=== PATIENT | female | born 1965 | race Caucasian/White ===

== ENCOUNTER 2018-03-03 10:45 | Day surgery (SDC) | payer OTHER, SELFPAY ==
--- NOTE | 2018-03-03 07:48 | W.PM.DSUDISC ---
Discharge Plan Disposition Patient Disposition: HOME Condition: Good Discharge Details Reason For Visit: ADENOMATOUS POLYP Attending Provider: Lou Alfaro Primary Care Provider: Jayde Dc V Home Meds and New Rx's Prescriptions: Continue egzoewhqdpleg-GA-mkmaqjzoabkuz [Mucinex Fast-Max Congest-Head] 1 EACH capsule 1 ea PO PRN PRNRF: 0 levothyroxine [Synthroid] 125 MCG tablet 125 mcg PO DAILY RF: 0 Discharge Instructions Instructions: Flexible Sigmoidoscopy (DC) Additional Instructions: Findings: 2 rectal polyps Follow up: depends on pathology Diet: high fiber Please call if you develop: fevers greater then 101.5 abdominal pain that is not transient nausea or vomiting 1. Because there will be medication in your system for the next 24 hours, you may feel a little sleepy. Your coordination will be affected. Therefore: a. Do not drive or operate dangerous equipment for 24 hours. b. Do not drink alcohol beverages for 24 hours (not even beer). c. Plan to go home and rest for the day. 2. Generally there are no restrictions on your activity after a day or so has gone by, but you may feel a bit fatigued for a few days. 3 After you arrive home you may have a light meal and return to a normal diet as you can tolerate it without feeling sick to your stomach. 4. After surgery, you may feel pain or discomfort. This should be only transient, but if it persists please contact your doctor. 5. If there are any questions regarding the findings of your procedure, please feel free to contact your doctor. 6. If you are unable to contact your doctor with a problem, contact the hospital at [phone]. 7. Continue all your regular medications unless directed otherwise. I understand the above instructions and have no questions. Signature of Patient or Responsible Adult Escort Date/Time Name of Responsible Adult Escort Signature of Nurse Date/Time Activity:: Activity as Tolerated Discharge Orders Discharge Orders: Discharge Order (Routine); Ordered 03/03/18 Ordered By: Lou Alfaro
--- NOTE | 2018-03-03 07:57 | PDOC.DSDIS_ITS ---
Discharge Plan Disposition Patient Disposition: HOME Condition: Good Discharge Details Reason For Visit: ADENOMATOUS POLYP Attending Provider: Lou Alfaro Primary Care Provider: Jayde Dc V Home Meds and New Rx's Prescriptions: Continue dlzqjgwohqzrx-ZQ-zawxdvvsifumg [Mucinex Fast-Max Congest-Head] 1 EACH capsule 1 ea PO PRN PRNRF: 0 levothyroxine [Synthroid] 125 MCG tablet 125 mcg PO DAILY RF: 0 Discharge Instructions Instructions: Flexible Sigmoidoscopy (DC) Additional Instructions: Findings: 2 rectal polyps Follow up: depends on pathology Diet: high fiber Please call if you develop: fevers greater then 101.5 abdominal pain that is not transient nausea or vomiting 1. Because there will be medication in your system for the next 24 hours, you may feel a little sleepy. Your coordination will be affected. Therefore: a. Do not drive or operate dangerous equipment for 24 hours. b. Do not drink alcohol beverages for 24 hours (not even beer). c. Plan to go home and rest for the day. 2. Generally there are no restrictions on your activity after a day or so has gone by, but you may feel a bit fatigued for a few days. 3 After you arrive home you may have a light meal and return to a normal diet as you can tolerate it without feeling sick to your stomach. 4. After surgery, you may feel pain or discomfort. This should be only transient , but if it persists please contact your doctor. 5. If there are any questions regarding the findings of your procedure, please feel free to contact your doctor. 6. If you are unable to contact your doctor with a problem, contact the hospital at [phone]. 7. Continue all your regular medications unless directed otherwise. I understand the above instructions and have no questions. Signature of Patient or Responsible Adult Escort Date/Time Name of Responsible Adult Escort Signature of Nurse Date/Time Activity:: Activity as Tolerated Discharge Orders Discharge Orders: Discharge Order (Routine); Ordered 03/03/18 Ordered By: Lou Alfaro
[2018-03-03 11:06] VITALS: BP 147/102; PULSE 115; RESP 18; TEMP 37; O2SAT 98
[2018-03-03] MEDS: Lactated Ringers 1,000 ML 80 ML IV (11:33)
--- NOTE | 2018-03-03 12:35 | BOWEL_PTH ---
PATIENT: Marlen Renee LOC: [facility] U#:[id number] AGE/SX: 52/F ROOM: RE03/03/[address]: Lou Alfaro MD : 1965 BED: DIS: 03/03/2018 SPEC #: [id number] RECD: 03/03/18 13:16 STATUS: PRATIBHA RE #: [id number] DEMARCO: 03/03/18 12:[address]: Lou Alfaro DEPT: Surgical Specimen RECD BY: Eleanor Torres ENTERED: 03/03/18 13:17 SP TYPE: Bowel OTHR DR: Jayde Dc V Tissues: 1 - BIOPSY BOWEL Procedures: GROSS AND MICRO LEVEL 4 Comments: [id number]
--- NOTE | 2018-03-03 12:52 | W.COLOREPORT ---
Colonoscopy Report Date of procedure: 03/03/18 Pre-op diagnosis general: Cancerous polyp Post-op diagnosis procedure note: other (rectal polyp) Procedure: Flexible sigmoidoscopy Surgeon: Lou Alfaro Anesthesia proc note operative: MAC (Isidoro Lima CRNA) Estimated blood loss (mL): 5 Pathology: other (rectal polyp) Complications: None Disposition: same day Indications: Cancerous polyp 3 months ago Prep: Other (enema) Findings: 2 polyps in the rectum Procedure Description: After informed consent was obtained the patient was taken to the Procedure room and placed in a left lateral position. A time out was done. The patient's name, date of , allergies to medications and metal in her body were reviewed. Monitors were applied and the patient was sedated. Once sedated a rectal exam was done. External exam was normal. Internal exam revealed no masses and normal sphincter tone. The scope was introduced and retroflexed and no internal hemorrhoids were noted. The scope was straightened and advanced to the splenic flexure. The prep was adequate. The scope was retracted over 5 minutes. In the rectum at 8 cm 2 small polyps were identified and removed with a hot snare. The scope was removed and the patient was woken up and taken back to [facility] in stable condition.
[2018-03-03 13:20] VITALS: BP 123/83; PULSE 76; RESP 16; TEMP 36.4; O2SAT 97
== END 2018-03-03 13:50 | disposition home or self-care (01) ==
LOC: SUR 10:46
PROVIDERS: PCP Family Medicine; Visit Provider Surgery
PROC: 0DJD8ZZ Inspection of Lower Intestinal Tract, Via Natural or Artificial Opening Endoscopic (ICD-10-PCS; CPT 45330; principal; 2018-03-03 12:45)
DX: K62.1 Rectal polyp (principal); Z86.010 Personal history of colon polyps
CPT/HCPCS: 45333; 88305

== ENCOUNTER 2018-06-02 01:21 | Outpatient (CLI) | payer OTHER, SELFPAY ==
--- NOTE | 2018-06-02 09:33 | DI.MAMMO_ITS ---
SYMPTOM/DIAGNOSIS: H/O BREAST CA Z85.3, SCREENING, Z12.31 MAMMOGRAMS: Mammograms were interpreted according to the usual protocol including computer analysis with CAD system, tomosynthesis and C view imaging. Comparison with prior examinations. Breast density A. Post surgical changes of a lumpectomy with a scar in the upper outer quadrant of the left breast. No suspicious masses or microcalcifications are seen. There has been no significant change compared to the prior examinations.. IMPRESSION: No evidence for malignancy. Routine yearly mammography is recommended. Category 2-A. MQSA ASSESSMENT OF FINDINGS: Negative with benign findings. Category 2. Patient will receive a letter notifying them of these results. BI-RAD category A. The breasts are almost entirely fatty.
== END 2018-06-02 01:41 ==
PROVIDERS: PCP Family Medicine; Visit Provider Family Medicine
DX: Z12.31 Encounter for screening mammogram for malignant neoplasm of breast (principal); Z85.3 Personal history of malignant neoplasm of breast; Z98.890 Other specified postprocedural states
CPT/HCPCS: 77063; 77067

== ENCOUNTER 2019-05-01 09:31 | Day surgery (SDC) | payer OTHER, SELFPAY ==
--- NOTE | 2019-05-01 07:09 | W.COLOREPORT ---
Date of service: 05/01/19 Time of Service: 10:37 Colonoscopy Report Date of procedure: 05/01/19 Pre-op diagnosis general: hx of colon polyps Post-op diagnosis procedure note: same Procedure: Colonoscopy with polypectomy Surgeon: Lou Alfaro Anesthesia proc note operative: other (General/ ASA 2/Elisa Gee CRNA ) Estimated blood loss (mL): 3 Pathology: other (Ascending colon polyp and sigmoid polyp) Complications: None Disposition: same day Indications: Mrs. Renee is a pleasant 53 year old female seen in the office for a repeat colonoscopy. Her last colonoscopy was 1 year ago. 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 One year ago she was found to have a tubular adenoma and hyperplastic polyp. Risks, benefits and complications have been reviewed. Complications include but are not limited to bleeding, pain, perforation, missed small lesion/polyp, sore throat, aspiration and adverse reaction to the medications. Questions were entertained and answered to their satisfaction and they wished to proceed. No guarantees were given or implied. Prep: Miralax/Dulcolax Procedure Start Time: :37 Procedure End Time: :02 Retraction Time: 18 minutes Findings: 2 small sessile polyps Diverticulosis Procedure Description: After informed consent was obtained the patient was taken to the procedure room and placed in a left decubitous position. Monitors were applied and a time out was done. The patients name, date of , procedure, allergies to medications and metal in their body was reviewed. The patient was then sedated. Once sedated and comfortable a rectal exam was done. External exam was normal. Internal exam revealed a normal sphincter tone and no palpable masses. The scope was then introduced and retro-flexed. No internal hemorrhoids, polyps or masses were identified on retro-flexion. The scope was then advanced to the cecum without difficulty. The TI and appendiceal orifice were identified. The prep was good. The scope was then slowly retracted over 18 minutes back into the rectum. Polyps were removed with cold forceps in the ascending colon and sigmoid colon. The scope was removed and the patient was woken up and taken back to Same day surgery in stable condition. The patient tolerated the procedure well and there were no immediate complications. Follow up: The patient should follow up in 3-5 years unless they develop changes in bowel habits or other new gastrointestinal complaints.
--- NOTE | 2019-05-01 07:19 | W.PM.DSUDISC ---
Discharge Plan Disposition Patient Disposition: HOME Condition: Good Discharge Details Reason For Visit: Colon Cancer Screening Attending Provider: Lou Alfaro Primary Care Provider: Jayde Dc V Home Meds and New Rx's Prescriptions: Continued Centrum Silver Women 8 mg iron-400 mcg-300 mcg Tablet 1 tab PO RF: 0 levothyroxine [Synthroid] 125 MCG tablet 125 mcg PO DAILY RF: 0 Discharge Instructions Instructions: Colonoscopy (DC) Additional Instructions: Findings: 2 polyps Diverticulosis Follow up: 3-5 years Please call if you develop: fevers >101.5 Nausea or Vomiting Abdominal pain that is not transient DAY SURGERY UNIT POST ENDOSCOPY INSTRUCTIONS 1. Because there will be medication in your system for the next 24 hours, you may feel a little sleepy. Your coordination will be affected. Therefore: a. Do not drive or operate dangerous equipment for 24 hours. b. Do not drink alcohol beverages for 24 hours (not even beer). c. Plan to go home and rest for the day. 2. Generally there are no restrictions on your activity after a day or so has gone by, but you may feel a bit fatigued for a few days. 3 After you arrive home you may have a light meal and return to a normal diet as you can tolerate it without feeling sick to your stomach. 4. After surgery, you may feel pain or discomfort. This should be only transient, but if it persists please contact your doctor. 5. If there are any questions regarding the findings of your procedure, please feel free to contact your doctor. 6. If you are unable to contact your doctor with a problem, contact the hospital at [phone]. 7. Continue all your regular medications unless directed otherwise. I understand the above instructions and have no questions. Signature of Patient or Responsible Adult Escort Date/Time Name of Responsible Adult Escort Signature of Nurse Date/Time Activity:: Activity as Tolerated Diet:: High Fiber diet Discharge Orders Discharge Orders: Discharge Order (Routine); Ordered 05/01/19 Ordered By: Lou Alfaro DS: Diagnosis Discharge Diagnosis (1) Colonoscopy - MAC: Status: None (2) Diverticulosis: Status: Acute (3) Colorectal polyps: Status: Acute
[2019-05-01] MEDS: Lactated Ringers 1,000 ML 80 ML IV (10:00)
[2019-05-01 10:02] VITALS: BP 134/98; PULSE 95; RESP 16; TEMP 36.6; O2SAT 99
--- NOTE | 2019-05-01 10:50 | BOWEL_PTH ---
PATIENT: Marlen Renee LOC: [facility] U#:[id number] AGE/SX: 53/F ROOM: RE05/01/[address]: Lou Alfaro MD : 1965 BED: DIS: 05/01/2019 SPEC #: [id number] RECD: 05/01/19 12:37 STATUS: PRATIBHA REQ #: [id number] DEMARCO: 05/01/19 10:[address]: Lou Alfaro DEPT: Surgical Specimen RECD BY: Eleanor Torres ENTERED: 05/01/19 12:37 SP TYPE: Bowel OTHR DR: Jayde Dc V Tissues: 1 - BIOPSY BOWEL 2 - BIOPSY BOWEL Procedures: GROSS AND MICRO LEVEL 4 Comments: [id number]
[2019-05-01 11:45] VITALS: BP 109/69; PULSE 69; RESP 18; TEMP 36.1; O2SAT 100
== END 2019-05-01 12:05 | disposition home or self-care (01) ==
LOC: SUR 09:31
PROVIDERS: PCP Family Medicine; Visit Provider Surgery
PROC: 0DJD8ZZ Inspection of Lower Intestinal Tract, Via Natural or Artificial Opening Endoscopic (ICD-10-PCS; CPT 45378; principal; 2019-05-01 10:00)
DX: Z12.11 Encounter for screening for malignant neoplasm of colon; Z86.010 Personal history of colon polyps; Z87.19 Personal history of other diseases of the digestive system; D12.2 Benign neoplasm of ascending colon; Z85.3 Personal history of malignant neoplasm of breast
CPT/HCPCS: 45380; 88305

== ENCOUNTER 2019-06-05 01:04 | Outpatient (CLI) | payer OTHER, SELFPAY ==
--- NOTE | 2019-06-05 09:40 | DI.MAMMO_ITS ---
EXAM: MG MAMMO SCREENING 60 MIN DUR CLINICAL HISTORY: SCREENING, PERSONAL H/O BREAST CA, [facility], Z00.00. TECHNIQUE: Full field digital CC and MLO mammographic images were obtained with 3D tomosynthesis and utilizing computer aided detection (CAD). COMPARISON: 2009 through 2017 FINDINGS: Breast density: A Breast Density - Category A - Almost entirely fatty Right breast: Masses/Architectural Distortion: None seen. Microcalcifications: No suspicious pleomorphic-type calcifications are seen. Skin Thickening/Nipple Retraction: None. Axilla: Unremarkable. Left breast: The patient is status post lumpectomy in the upper outer quadrant of the left breast. T here is a stable area of scarring in this location. No new masses or suspicious calcifications are s een. IMPRESSION: 1. No significant interval change with no specific features of malignancy noted. BI-RADS Cat 2 - Andrei gn Findings 2. Unless there is more urgent need, screening mammography is recommended, as per [employer] guidelines. BI-RADS Cat 2 - Benign Findings Breast Density - Category A - Almost entirely fatty A negative radiographic report should not delay biopsy if a dominant or clinically suspicious mass is present. Up to ten percent of cancers are not identified on mammography. A negative report may reinforce clinical impression. Adenosis and dense breasts may obscure an underlying neoplasm. False positive reports average 6 to 10%. Patient will receive a letter notifying them of these results.
== END 2019-06-05 01:24 ==
PROVIDERS: PCP Family Medicine; Visit Provider Family Medicine
DX: Z12.31 Encounter for screening mammogram for malignant neoplasm of breast (principal); Z85.3 Personal history of malignant neoplasm of breast; Z00.00 Encounter for general adult medical examination without abnormal findings; Z98.890 Other specified postprocedural states
CPT/HCPCS: 77063; 77067

== ENCOUNTER 2020-06-06 00:40 | Outpatient (CLI) | payer OTHER, SELFPAY ==
--- NOTE | 2020-06-06 10:00 | DI.MAMMO_ITS ---
EXAM: MG MAMMO SCREENING 60 MIN DUR CLINICAL HISTORY: SCREENING, PERSONAL H/O BREAST CA,[facility],Z00.00. TECHNIQUE: Bilateral full field digital CC and MLO mammographic images were obtained with 3D tomosyn thesis and utilizing computer aided detection (CAD). COMPARISON: Prior mammograms dating back to 2010, the most recent being February 2015. This patien t underwent left breast lumpectomy for malignancy apparently 2006. FINDINGS: Lumpectomy site scarring in the upper outer quadrant of the left breast remains unchanged. Calcifica tions in this region remain unchanged as is the mount of architectural distortion. There are no new significant radiograph findings in either breast. There are no new spiculated masses nor new malignant appearing microcalcification groups. IMPRESSION: No radiographic evidence of malignancy. Continued stable appearance of the left breast lumpectomy sit e. BI-RADS Category 2 - Benign Findings Breast Density - Category A - Almost entirely fatty Breast density Category C or D implies that the patient has dense breast tissue. Dense breast tissue can make it harder to find cancer on a mammogram. Dense breast tissue is also associated with an incr eased risk of breast cancer. This information about the result of the mammogram report was provided to the patient to raise their awareness. Use this report when you speak with the patient about their risks for breast cancer, which includes their family history. At that time, you may recommend additional screening tests (Ultrasoun d or MRI) as these tests may add significant information. A negative radiographic report should not delay biopsy if a dominant or clinically suspicious mass is present. Up to ten percent of cancers are not identified on mammography. A negative report may reinforce clinical impression. Adenosis and dense breasts may obscure an underlying neoplasm. False positive reports average 6 to 10%. Patient will receive a letter notifying them of these results.
== END 2020-06-06 01:00 ==
PROVIDERS: PCP Family Medicine; Visit Provider Family Medicine
DX: Z00.00 Encounter for general adult medical examination without abnormal findings (principal); Z12.31 Encounter for screening mammogram for malignant neoplasm of breast; Z85.3 Personal history of malignant neoplasm of breast
CPT/HCPCS: 77063; 77067

== ENCOUNTER 2020-10-15 08:22 | Outpatient (CLI) | payer OTHER, SELFPAY ==
--- NOTE | 2020-10-15 08:00 | DI.RAD_ITS ---
EXAM: XR SHOULDER RT COMPLETE 2+V CLINICAL HISTORY: right shoulder pain. TECHNIQUE: 2D digital imaging was performed. COMPARISON: No exams were available for comparison FINDINGS: BONES: No acute fracture is present. No bony destructive lesion is seen. JOINTS: No dislocation present. SOFT TISSUE: Normal. IMPRESSION: Unremarkable radiographs of the right shoulder. DATA REPOSITORY: RADIATION DOSE DELIVERED:
== END 2020-10-15 08:23 | disposition home or self-care (01) ==
LOC: DIORS 08:22
PROVIDERS: PCP Family Medicine; Referring Provider Family Medicine; Visit Provider Student in an Organized Health Care Education/Training Program
DX: M25.511 Pain in right shoulder (principal)
CPT/HCPCS: 73030

== ENCOUNTER 2020-12-18 10:26 | Outpatient (CLI) | payer OTHER, SELFPAY ==
--- NOTE | 2020-12-18 10:15 | DI.RAD_ITS ---
Exam(s) XR SHOULDER RT COMPLETE 2+V EXAM: XR SHOULDER RT COMPLETE 2+V CLINICAL HISTORY: F/u. TECHNIQUE: 2D digital imaging was performed. COMPARISON: CR XR SHOULDER RT COMPLETE 2+V from 10/15/2020 FINDINGS: There is no evidence of fracture or dislocation no abnormal soft tissue calcifications. Coracoid pro cess is intact. There is no narrowing joint spaces. Subacromial height is not diminished. Visualized scapula and partially included ipsilateral clavicle appear unremarkable. IMPRESSION: No significant radiograph findings in the right shoulder and no significant change compared to 2020 DATA REPOSITORY: RADIATION DOSE DELIVERED:
== END 2020-12-18 10:27 | disposition home or self-care (01) ==
LOC: DIORS 10:27
PROVIDERS: PCP Family Medicine; Referring Provider Family Medicine; Visit Provider Student in an Organized Health Care Education/Training Program
DX: M75.81 Other shoulder lesions, right shoulder (principal)
CPT/HCPCS: 73030

== ENCOUNTER 2020-12-30 03:29 | Outpatient (CLI) | payer OTHER, SELFPAY ==
[2020-12-30 07:50] LABS: HCT 40.6 % (36.0-46.0); HGB 13.1 g/dL (11.2-15.7)
[2020-12-30 08:21] LABS: Hemoglobin A1C 5.9 % (<5.7)
[2020-12-30 09:15] LABS: ALT 24 U/L (14-59); AST 16 U/L (15-37); Albumin 3.6 g/dL (3.4-5.0); Alkaline Phosphatase 96 U/L (46-116); Anion Gap 10.8 mmol/L (3-11); BUN 11 mg/dL (7-18); Bilirubin, Total 0.4 mg/dL (0.2-1.0); CO2 25.2 mmol/L (21.0-32.0); Calcium 9.6 mg/dL (8.5-10.1); Chloride 108 mmol/L (98-107); Estimated GFR 57.78 (mL/min/1.73m2); FREE T4 1.65 ng/dL (0.76-1.46); Glucose 99 mg/dL (74-106); Potassium 4.4 mmol/L (3.5-5.1); Sodium 144 mmol/L (136-145); Total Protein 6.7 g/dL (6.4-8.2)
[2020-12-30 12:33] LABS: Calculated LDL 133 mg/dL (<100); Cholesterol 226 mg/dL (<200); HDL Cholesterol 76 mg/dL (40-60); Triglyceride 86 mg/dL (<150)
== END 2020-12-30 03:30 | disposition home or self-care (01) ==
LOC: LBO 03:29
PROVIDERS: PCP Family Medicine; Visit Provider Family Medicine
DX: R03.0 Elevated blood-pressure reading, without diagnosis of hypertension (principal); E03.9 Hypothyroidism, unspecified; Z00.00 Encounter for general adult medical examination without abnormal findings; Z13.1 Encounter for screening for diabetes mellitus; Z13.220 Encounter for screening for lipoid disorders
CPT/HCPCS: 36415; 80053; 80061; 83036; 84439; 85014; 85018

== ENCOUNTER 2021-02-13 09:57 | Outpatient (REF) | payer OTHER, SELFPAY ==
--- NOTE | 2021-02-13 09:15 | PAPFT_PTH ---
PATIENT: Marlen Renee LOC: [facility] U#:[id number] AGE/SX: 55/F ROOM: RE02/13/[address]: JOSEPHINE Win : 1965 BED: DIS: 02/13/2021 SPEC #: [id number] RECD: 02/13/21 13:03 STATUS: PRATIBHA REDarcy #: [id number] DEMARCO: 02/13/21 09:[address]: Mitzi Mederos DEPT: [facility] Cytology RECD BY: Eleanor Torres ENTERED: 02/13/21 13:04 SP TYPE: PAPFT OTHR DR: Jayde Dc V Tissues: 1 - CX/ENDOCX FOR PAP SMEARS Procedures: PAP THIN PREP/[facility] Screening HPV DNA PROBE Comments: [id number]
== END 2021-02-13 09:58 | disposition home or self-care (01) ==
LOC: LBN 09:57
PROVIDERS: PCP Family Medicine; Visit Provider Nurse Practitioner Family
DX: Z12.4 Encounter for screening for malignant neoplasm of cervix (principal); Z11.51 Encounter for screening for human papillomavirus (HPV)
CPT/HCPCS: 88142; 87624

== ENCOUNTER 2021-03-06 02:02 | Outpatient (CLI) | payer OTHER, SELFPAY ==
--- NOTE | 2021-03-06 06:45 | DI.CT_ITS ---
Exam(s) CT ABDOMEN PELVIS W EXAM: CT ABDOMEN PELVIS W CLINICAL HISTORY: LLQ pain c/o diverticulitis, R10.32 TECHNIQUE: Imaging Protocol: Axial computed tomography images with coronal and sagittal reformatted images were created and reviewed CONTRAST MATERIAL: Intravenous: Omnipaque 350 Contrast volume:100 mL Oral: Yes COMPARISON: No exams were available for comparison FINDINGS: ABDOMEN: Lung Bases: Normal where visualized. Small hiatal hernia. Liver: Normal density. No measurable mass. Portal, Superior Mesenteric, and Splenic Veins: Unremarkable. Gallbladder and Biliary Tract: No radiodense calculus or dilation. Pancreas: Normal density, no abnormal calcifications or inflammatory process. Spleen: Normal. Adrenals: No masses seen. Kidneys: Normal size, contour and axis. No radiodense stones or obstructive uropathy. No masses seen. Abdominal Aorta: Abdominal portion non-dilated. Mild atherosclerosis. Bowel: No evidence of obstruction. There is diverticulosis seen in the descending and sigmoid colon. There is bowel wall thickening and pericolonic inflammatory changes seen at the junction of the melissa cending colon and the sigmoid colon consistent with acute diverticulitis. No abscess or free air. A ppendix is unremarkable. Peritoneal Cavity: No ascites, collection or mesenteric inflammatory response. No free air. Lymph Nodes: Within normal limits. Bones: Within normal limits for the patient's age. Soft Tissues: Unremarkable. PELVIS: Bladder: Symmetric distention, no gross wall thickening. Reproductive Organs: Unremarkable as visualized. Lymph Nodes: Within normal limits. Bones: Within normal limits for the patient's age. IMPRESSION: Uncomplicated acute diverticulitis at the junction of the descending and sigmoid colon. No abscess o r free air. RADIATION DOSE DELIVERED: 1,595.21mGy.cm Total DLP DATA REPOSITORY: All CT scans at this facility are submitted to the National Radiology Data Registry (NRDR) Dose Index Registry (DIR) with the [employer] (A[employer]). RADIATION OPTIMIZATION: All CT scans at this facility use at least one of these dose optimization te chniques: automated exposure control; mA and/or kV adjustment per patient size (includes targeted exa ms where dose is matched to clinical indication); or iterative reconstruction.
[2021-03-06] MEDS: Omnipaque 350 MG/ML 50 ML BTL IJ (08:02)
[2021-03-06] MEDS: Omnipaque 350 MG/ML 100 ML BTL IV (09:05)
[2021-03-06] MEDS: Normal Saline Flush 10 ML SYR IVP (09:06)
== END 2021-03-06 02:22 ==
PROVIDERS: PCP Family Medicine; Visit Provider Physician Assistant
DX: R10.32 Left lower quadrant pain (principal); K57.30 Diverticulosis of large intestine without perforation or abscess without bleeding
CPT/HCPCS: 74177; J3490; Q9967

== ENCOUNTER 2021-06-26 02:59 | Outpatient (CLI) | payer OTHER, SELFPAY ==
--- NOTE | 2021-06-26 06:45 | DI.MAMMO_ITS ---
Exam(s) MG MAMMO SCREENING 60 MIN DUR EXAM: MG MAMMO SCREENING 60 MIN DUR CLINICAL HISTORY: breast cancer screening,z12.39 TECHNIQUE: Bilateral full field digital CC and MLO mammographic images were obtained with 3D tomosyn thesis and utilizing computer aided detection (CAD). COMPARISON: Available for comparison. FINDINGS: Masses/Architectural Distortion: The patient is status post left breast lumpectomy. No suspicious ma ss or areas of architectural distortion are seen. Microcalcifications: No suspicious pleomorphic-type are seen. Stable calcifications at the lumpectomy site are noted. Skin Thickening/Nipple Retraction: None. IMPRESSION: 1. No significant interval change with no specific features of malignancy noted. 2. Unless there is more urgent need, screening mammography is recommended, as per [employer] guidelines. BI-RADS Category 2 - Benign Findings Breast Density - Category A - Almost entirely fatty Breast density category C or D implies that the patient has dense breast tissue. Dense breast tissue is very common and is not abnormal but dense breast tissue can make it harder to find cancer on a ma mmogram. Also, dense breast tissue may increase their breast cancer risk. This information about the result of the mammogram report was provided to the patient to raise their awareness. Use this report when you speak with the patient about their risks for breast cancer, which includes their family hist ory. At that time, you may recommend for more screening tests (Ultrasound or MRI) as they might be us eful based on their risk. A negative radiographic report should not delay biopsy if a dominant or clinically suspicious mass is present. Up to ten percent of cancers are not identified on mammography. A negative report may reinforce clinical impression. Adenosis and dense breasts may obscure an underlying neoplasm. False positive reports average 6 to 10%. Patient will receive a letter notifying them of these results.
== END 2021-06-26 03:19 ==
PROVIDERS: PCP Family Medicine; Visit Provider Nurse Practitioner Family
DX: Z12.31 Encounter for screening mammogram for malignant neoplasm of breast (principal)
CPT/HCPCS: 77063; 77067

== ENCOUNTER 2022-02-15 09:13 | Emergency (ER) | payer OTHER, SELFPAY ==
[2022-02-15 09:15] VITALS: BP 148/97; PULSE 95; RESP 16; TEMP 36.8; O2SAT 100
--- NOTE | 2022-02-15 09:51 | W.ED.GENAD ---
Discharge Plan Disposition Patient Disposition: HOME Condition: Stable Discharge Details Clinical Impression: Conjunctivitis Primary Care Provider: Jayde Dc V ED Provider: Gordo Miguel Home Meds and New Rx's Prescriptions: Continued glucosamine sulfate 500 mg tablet 500 mg PO DAILY Rx Instructions: administer with a meal levothyroxine [Synthroid] 125 MCG tablet 125 mcg PO DAILY Discharge Instructions Instructions: Conjunctivitis (ED) Additional Instructions: Cipro eyedrops as directed. Fekn-agn-xinhaoc medications for symptomatic control. Please watch for new or worsening symptoms and return to the ER for any concerns. Do not wear your contacts until you have finished your antibiotic therapy. Discharge Data Discharge Date/Time-TO BE ENTERED AT DEPARTURE: 02/15/22 10:09 Medical Decision Making 56-year-old female reports URI-like symptoms 1 week ago, symptoms improving, home COVID test negative. Now with bilateral conjunctivitis over the past 12 hours. She does wear contacts but is currently wearing her glasses. Clinically she appears well, nontoxic. Examination is consistent with conjunctivitis, difficult to tell viral versus bacterial. Given she wears contacts will treat with Cipro. Recommend that she completes her course of antibiotics before wearing contacts. Standard discharge and return precautions were provided. Patient understands, is agreeable to this plan, and has no additional questions or concerns upon discharge. This documentation was generated using [employer] system, please disregard any oddities of phrase or misspellings. Medical Records Medical records reviewed: Yes I reviewed the patient's medical records. HPI General Mode of arrival: ambulatory. Date/Time Provider Initiated Documentation: 02/15/22 09:51. Limitations to Documentation: no limitations. Information obtained by: patient. History of Present Illness 56 year old F presents to the emergency department with the chief complaint of pink eye, described as mild, with intensity rated at 2. Quality is described as other (Irritating, crusting), and is localized to the eyes. Patient reports no radiation. Patient started experiencing this hour(s) (12) and it has been constant. No relieving factors improve symptom(s), No exacerbating factors reported . Patient notes other (Lost to voice 1 week ago). Patient did receive the following treatments prior to arrival, none Related Data Home Medications Medication Instructions Recorded Confirmed levothyroxine 125 mcg tablet 125 mcg PO DAILY 08/16/17 02/15/22 (Synthroid) glucosamine sulfate 500 mg tablet 500 mg PO DAILY 10/15/20 02/15/22 Allergies Allergy/AdvReac Type Severity Reaction Status Date / Time No Known Allergies Allergy Verified 02/15/22 09:23 General Stated Complaint: EyeProblem MARI: 5 Review of Systems Constitutional Constitutional: Denies fever(s) Eyes Eyes: Denies change in vision, Reports eye discharge and Reports irritation ENT Ears, Nose, Mouth, and Throat: Denies otalgia and Reports sore throat (Last week) Cardiovascular Cardiovascular: Denies chest pain and Denies dyspnea Respiratory Respiratory: Reports cough (last week) and Denies dyspnea Integumentary/Breasts Skin/Breast: Denies rash PFSH All Active Problems Conjunctivitis (Acute) Ankle pain, right (Acute) Hx of breast cancer (Acute) left - age 41 Right rotator cuff tendonitis (Acute) Biceps tendinitis of right shoulder (Acute) Bursitis of right shoulder (Acute) Colorectal polyps (Acute) Diverticulosis (Acute) Medical History History of left breast cancer (10/29/15) Dx at age 41 Hypothyroidism (10/29/15) Morbid obesity with BMI of 40.0-44.9, adult 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 Surgical History section Endometrial Biopsy 2012 - Benign - done due to Endometrial cells on pap smear H/O flexible sigmoidoscopy 02/2018- Tubular adenoma and Hyperplastic adenoma History of lumpectomy of left breast Family History Mother Essential hypertension Hyperlipidemia Father Prostate cancer Diabetes Essential hypertension Sister Lupus Grandmother Colon cancer Maternal Maternal Aunt Breast cancer Paternal Social History Smoking/Tobacco Use Status: Never Smoking risk assessment performed?: Yes Alcohol Intake: current Alcohol Intake frequency: holidays/special occasions only Drug use: Never Substance use type: does not use Current gender identity: female Do you feel safe at home: Yes Do you feel safe in your relationship?: Yes Exam Const General: cooperative, healthy appearing, comfortable and no acute distress Orientation: alert, awake and oriented x3 HENMT Head: normal to inspection, normocephalic and atraumatic Ears: external ears normal, TM's normal bilaterally and EAC's normal Face and sinus: normal facial exam Mouth: oral mucosae normal and moist mucous membranes Throat: posterior oropharynx normal Eyes Alignment and Position: alignment normal Periorbital: periorbital findings normal Eyelids: eyelids normal Conjunctivae: conjunctival abnormality bilaterally conjunctival injection and discharge Sclera: sclerae normal Cornea: corneas normal Pupils: PERRL EOM: EOM intact bilaterally Direct ophthalmoscopy: normal light reflex Neck Neck: normal visual inspection, full ROM, no meningeal signs, trachea midline, supple and nontender Resp Effort & Inspection: normal respiratory effort and able to speak in complete sentences Skin General skin exam: no rashes or lesions noted Neuro General: patient alert, patient awake, moves all extremities and no focal motor deficits Sensory Exam: no sensory deficits noted Psych Appearance: grossly normal Mental Status: mental status grossly normal Course Vital Signs Vital signs: Vital Signs Temperature 36.8 C 02/15/22 09:15 Pulse 95 H 02/15/22 09:15 Respiratory Rate 16 02/15/22 09:15 Blood Pressure 148/97 H 02/15/22 09:15 Pulse Oximetry 100 02/15/22 09:15 Temperature 36.8 C 02/15/22 09:15 Pulse 95 H 02/15/22 09:15 Respiratory Rate 16 02/15/22 09:15 Respiratory Effort Non-Labored 02/15/22 09:18 Blood Pressure 148/97 H 02/15/22 09:15 Blood Pressure Position Sitting 02/15/22 09:15 Pulse Oximetry 100 02/15/22 09:15 Oxygen Delivery Method Room Air 02/15/22 09:15 Oxygen Flow Rate 0 02/15/22 09:15 Pain Level 0 02/15/22 09:15
== END 2022-02-15 10:09 | disposition home or self-care (01) ==
PROVIDERS: Emergency Provider Physician Assistant; PCP Family Medicine
DX: H10.9 Unspecified conjunctivitis (principal)
CPT/HCPCS: 99283; 99284

== ENCOUNTER 2022-04-16 15:52 | Outpatient (REF) | payer OTHER, SELFPAY ==
[2022-04-16 18:58] LABS: Hemoglobin A1C 5.8 % (<5.7)
[2022-04-16 18:59] LABS: Calculated LDL 141 mg/dL (<100); Cholesterol 244 mg/dL (<200); HDL Cholesterol 83 mg/dL (40-60); Triglyceride 100 mg/dL (<150)
[2022-04-16 19:16] LABS: FREE T4 1.64 ng/dL (0.76-1.46)
== END 2022-04-16 15:53 | disposition home or self-care (01) ==
LOC: NCHCN 15:52
PROVIDERS: PCP Family Medicine; Visit Provider Family Medicine
DX: E03.9 Hypothyroidism, unspecified (principal); R73.03 Prediabetes; R03.0 Elevated blood-pressure reading, without diagnosis of hypertension
CPT/HCPCS: 80061; 83036; 84439

== ENCOUNTER 2022-06-29 07:10 | Outpatient (CLI) | payer OTHER, SELFPAY ==
--- NOTE | 2022-06-29 | DI.MAMMO_ITS ---
Exam(s) MG MAMMO SCREENING 60 MIN DUR EXAM: MG MAMMO SCREENING 60 MIN DUR CLINICAL HISTORY: SCREENING MAMMO Z12.31, HX BREAST CANCER Z85.3 TECHNIQUE: Mammograms were interpreted according to the usual protocol including computer analysis w [employer] CAD system, tomosynthesis and C-view imaging. COMPARISON: 2012 through 2021 FINDINGS: The breasts are composed of mainly fatty density , Breast Density category A. No suspicious masses or suspicious microcalcifications are seen. Area of scarring related to previou s lumpectomy is again noted in the upper outer quadrant of the left breast. Coarse calcifications ar e again noted. No skin thickening or abnormal axillary lymph nodes are seen. There has been no significant change from prior exams. IMPRESSION: BI-RADS Cat 2 - Benign Findings Yearly screening mammography is recommended. Breast Density - Category A, fatty density. A negative radiographic report should not delay biopsy if a dominant or clinically suspicious mass is present. Up to ten percent of cancers are not identified on mammography. A negative report may reinforce clinical impression. Adenosis and dense breasts may obscure an underlying neoplasm. False positive reports average 6 to 10%. Patient will receive a letter notifying them of these results.
== END 2022-06-29 07:30 ==
LOC: DI 07-13 07:10
PROVIDERS: PCP Family Medicine; Visit Provider Family Medicine
DX: Z12.31 Encounter for screening mammogram for malignant neoplasm of breast (principal); Z85.3 Personal history of malignant neoplasm of breast
CPT/HCPCS: 77063; 77067

== ENCOUNTER 2022-07-13 07:10 | Outpatient (CLI) | payer OTHER, SELFPAY ==
--- NOTE | 2022-07-13 07:00 | DI.MRI_ITS ---
Exam(s) MR LOWER JOINT RT WO EXAM: MR LOWER JOINT RT WO CLINICAL HISTORY: Persistent right lateral ankle pain,m25.571. TECHNIQUE: Multiplanar multisequence MRI Examination was performed. CONTRAST MATERIAL: Noncontrast COMPARISON: None. FINDINGS: Heel spurs. Achilles tendon and plantar fascia are unremarkable. Degenerative changes talonavicular joint with dorsal spurring. Degenerative changes to lesser extent in other tarsal articulations. Degenerative cyst in the posterior talus. Adjacent ossicle. Small cysts in sinus tarsi. Small cysts in adjacent calcaneus and talus. Tendons appear intact. IMPRESSION: Small cysts in the sinus tarsi adjacent cyst in the talus and calcaneus could indicate sinus tarsi sy ndrome. DATA REPOSITORY:
== END 2022-07-13 07:30 ==
PROVIDERS: PCP Family Medicine; Visit Provider Nurse Practitioner Family
DX: J34.1 Cyst and mucocele of nose and nasal sinus (principal); M85.671 Other cyst of bone, right ankle and foot
CPT/HCPCS: 73721

== ENCOUNTER 2022-09-17 13:26 | Outpatient (CLI) | payer OTHER, SELFPAY ==
[2022-09-17 14:14] LABS: FREE T4 1.43 ng/dL (0.76-1.46)
== END 2022-09-17 13:27 | disposition home or self-care (01) ==
LOC: LBO 13:26
PROVIDERS: PCP Family Medicine; Visit Provider Family Medicine
DX: E03.9 Hypothyroidism, unspecified (principal)
CPT/HCPCS: 36415; 84439

== ENCOUNTER → 2023-07-06 03:03 | Outpatient (CLI) | payer OTHER, SELFPAY ==
--- NOTE | 2023-07-06 11:15 | DI.MAMMO_ITS ---
Exam(s) MG MAMMO SCREENING 60 MIN DUR EXAM: MG MAMMO SCREENING 60 MIN DUR CLINICAL HISTORY: SCREENING, Z12.31,PERSONAL H/O BREAST CA. TECHNIQUE: Bilateral full field digital CC and MLO mammographic images were obtained with 3D tomosyn thesis and utilizing computer aided detection (CAD). COMPARISON: Prior mammograms were reviewed. There has been prior left lumpectomy in 2006 followed by radiation therapy. FINDINGS: There has been no significant change in the appearance and distribution of the fibroglandular tissue. Left breast lumpectomy site is unchanged. No new left breast findings. There are no new spiculated masses nor malignant appearing microcalcification groups evident in eithe r breast.. IMPRESSION: No radiographic evidence of malignancy. Stable appearance of left breast lumpectomy site (2006) BI-RADS Category 2 - Benign Findings Breast Density - Category B - Scattered areas of fibroglandular density Breast density Category C or D implies that the patient has dense breast tissue. Dense breast tissue can make it harder to find cancer on a mammogram. Dense breast tissue is also associated with an incr eased risk of breast cancer. This information about the result of the mammogram report was provided to the patient to raise their awareness. Use this report when you speak with the patient about their risks for breast cancer, which includes their family history. At that time, you may recommend additional screening tests (Ultrasoun d or MRI) as these tests may add significant information. A negative radiographic report should not delay biopsy if a dominant or clinically suspicious mass is present. Up to ten percent of cancers are not identified on mammography. A negative report may reinforce clinical impression. Adenosis and dense breasts may obscure an underlying neoplasm. False positive reports average 6 to 10%. Patient will receive a letter notifying them of these results.
== END ==
PROVIDERS: PCP Family Medicine; Visit Provider Family Medicine
DX: Z12.31 Encounter for screening mammogram for malignant neoplasm of breast (principal)
CPT/HCPCS: 77063; 77067

== ENCOUNTER 2023-07-09 01:20 | Outpatient (CLI) | payer OTHER, SELFPAY ==
[2023-07-09 10:35] LABS: Anion Gap 8.2 mmol/L (3-11); BUN 11 mg/dL (7-18); CO2 29.8 mmol/L (21.0-32.0); CREATININE 0.8 mg/dL (0.55-1.02); Calcium 9.6 mg/dL (8.5-10.1); Calculated LDL 140 mg/dL (<100); Chloride 105 mmol/L (98-107); Cholesterol 249 mg/dL (<200); Estimated GFR 86.42 (mL/min/1.73m2); Glucose 93 mg/dL (74-106); HDL Cholesterol 92 mg/dL (40-60); Potassium 3.9 mmol/L (3.5-5.1); Sodium 143 mmol/L (136-145); TSH (W/Ref FT4) 0.35 uIU/mL (0.36-3.74); Triglyceride 87 mg/dL (<150)
[2023-07-09 10:43] LABS: Hemoglobin A1C 5.7 % (<5.7)
[2023-07-09 10:54] LABS: FREE T4 1.33 ng/dL (0.76-1.46)
== END 2023-07-09 01:21 | disposition home or self-care (01) ==
LOC: LBO 01:20
PROVIDERS: PCP Family Medicine; Visit Provider Family Medicine
DX: Z12.6 Encounter for screening for malignant neoplasm of bladder (principal); E03.9 Hypothyroidism, unspecified; Z13.1 Encounter for screening for diabetes mellitus
CPT/HCPCS: 36415; 80048; 80061; 83036; 84439; 84443

== ENCOUNTER 2023-12-29 14:08 | Outpatient (CLI) | payer OTHER, SELFPAY ==
[2023-12-29 14:32] LABS: Anion Gap 7.7 mmol/L (3-11); BUN 12 mg/dL (7-18); CO2 28.3 mmol/L (21.0-32.0); CREATININE 0.9 mg/dL (0.55-1.02); Calcium 9.7 mg/dL (8.5-10.1); Chloride 106 mmol/L (98-107); Estimated GFR 74.57 (mL/min/1.73m2); Glucose 94 mg/dL (74-106); Sodium 142 mmol/L (136-145); TSH (W/Ref FT4) 0.38 uIU/mL (0.36-3.74)
== END 2023-12-29 14:09 | disposition home or self-care (01) ==
LOC: LBO 14:08
PROVIDERS: PCP Family Medicine; Visit Provider Family Medicine
DX: E03.9 Hypothyroidism, unspecified (principal); R73.03 Prediabetes
CPT/HCPCS: 36415; 80048; 84443

== ENCOUNTER 2024-07-17 02:02 | Outpatient (CLI) | payer OTHER, SELFPAY ==
--- NOTE | 2024-07-17 | DI.MAMMO_ITS ---
Exam(s) MG MAMMO SCREENING 60 MIN DUR EXAM: MG MAMMO SCREENING 60 MIN DUR CLINICAL HISTORY: SCREENING, PERSONAL H/O BREAST CA,Z85.3 TECHNIQUE: Bilateral full field digital CC and MLO mammographic images were obtained with 3D tomosyn thesis and utilizing computer aided detection (CAD). COMPARISON: Available for comparison. FINDINGS: Masses/Architectural Distortion: There again seen findings of a prior left lumpectomy. No new masses or areas of architectural distortion are present. Microcalcifications: No suspicious pleomorphic-type are seen. Skin Thickening/Nipple Retraction: None. IMPRESSION: 1. No significant interval change with no specific features of malignancy noted. 2. Unless there is more urgent need, screening mammography is recommended, as per [employer] [place] guidelines. 3. Findings were discussed with the patient on the date of the examination. BI-RADS Category 2 - Benign Findings Breast Density - Category B - Scattered areas of fibroglandular density Breast density category C or D implies that the patient has dense breast tissue. Dense breast tissue is very common and is not abnormal but dense breast tissue can make it harder to find cancer on a ma mmogram. Also, dense breast tissue may increase their breast cancer risk. This information about the result of the mammogram report was provided to the patient to raise their awareness. Use this report when you speak with the patient about their risks for breast cancer, which includes their family hist ory. At that time, you may recommend for more screening tests (Ultrasound or MRI) as they might be us eful based on their risk. A negative radiographic report should not delay biopsy if a dominant or clinically suspicious mass is present. Up to ten percent of cancers are not identified on mammography. A negative report may reinforce clinical impression. Adenosis and dense breasts may obscure an underlying neoplasm. False positive reports average 6 to 10%. Patient will receive a letter notifying them of these results.
== END 2024-07-17 02:22 ==
LOC: DI 02:02
PROVIDERS: PCP Family Medicine; Visit Provider Family Medicine
DX: Z85.3 Personal history of malignant neoplasm of breast (principal); Z12.31 Encounter for screening mammogram for malignant neoplasm of breast; R92.323 Mammographic fibroglandular density, bilateral breasts; D24.2 Benign neoplasm of left breast
CPT/HCPCS: 77063; 77067

== ENCOUNTER 2024-09-04 07:26 | Day surgery (SDC) | payer OTHER, SELFPAY ==
--- NOTE | 2024-09-03 19:15 | W.PM.DSUDISC ---
Date of service: 09/04/24 Discharge Plan Disposition Patient Disposition: Home Condition: Good Discharge Details Reason For Visit: screening colonoscopy Attending Provider: Hernando Al Primary Care Provider: Jayde Dc V Home Meds and New Rx's Prescriptions: Continued levothyroxine 112 mcg capsule 112 mcg PO DAILY levothyroxine 100 mcg capsule 100 mcg PO DAILY omega-3 fatty acids 1,000 mg capsule 1,000 mg PO DAILY Zepbound 5 mg/0.5 mL pen injector 5 mg subcut QWEEK multivitamin Tablet 1 tab PO DAILY cholecalciferol (vitamin D3) 25 mcg (1,000 unit) capsule 25 mcg PO DAILY (DME) Custom Ankle Orthotic See Rx Instructions .ROUTE .MEDSUPPLY Qty: 1 0RF Rx Instructions: Please fit and provide custom ankle device (AFO or Nany) for acquired pes planus and subfibular impingement. Discharge Instructions Instructions: Colon polyps, Diverticulosis Additional Instructions: Amy, it was very nice to meet you today, and I hope you are comfortable through the procedure. Everything went very smoothly. Your prep was excellent negative everything fine. I did find and remove a single polyp today. This was quite small. None of the features are worrisome to the naked eye. I will send this off for testing since polyps, different varieties, and we use the nature of the polyp to help guide timing of future colonoscopies. Incidentally, you also have some diverticulosis. I will attach some general information here about typical approaches to diverticular disease as well as colorectal polyps. 1. If tolerated, consume a soft, low fiber diet for 1-2 days. 2[address] Do not drive, drink alcohol, operate machinery, make critical decisions, or do activities that require coordination or balance for 24 hours. 3. Because air was put into your colon during the procedure, expelling air from your rectum (passing gas or farting) is normal. 4. You may not have a bowel movement for 1-3 days because of the colonoscopy prep. This is normal. 5. Go directly to the emergency room if you notice any of the following: Develop chills (warm to touch), or if you have a thermometer and your temperature is above 101 Difficulty breathing or difficultly swallowing Persistent vomiting Severe abdominal pain, other than gas cramps Severe chest pain Black, tarry stools Any bleeding ? exceeding one tablespoon 6. Call your physician if the site where your intravenous was started becomes red, swollen, painful, and warm to touch. 7. Your physician has reviewed your pre-procedure medications. Please continue to take those medications as previously ordered. You will be given specific information/education regarding any changes to your medications before leaving. Stand Alone Forms: Anesthesia Discharge InstEnriqueta Mon (DSU) Activity:: Activity as Tolerated Diet:: As Tolerated Discharge Orders Discharge Orders: Discharge Order (Routine); Ordered 09/03/24 Ordered By: Hernando Al DS: Diagnosis Discharge Diagnosis (1) Encounter for screening colonoscopy: Status: Acute Asessment and Plan: Follow-up on polypectomy results
--- NOTE | 2024-09-03 19:16 | W.COLOREPORT ---
Date of service: 09/04/24 Time of Service: 09:09 Colonoscopy Report Date of procedure: 09/04/24 Pre-op diagnosis general: screening colonoscopy Post-op diagnosis procedure note: other (Colon polyps, diverticulosis) Procedure: colonscopy with polypectomy Surgeon: Hernando Al Anesthesia Type: General:No Airway Estimated blood loss (mL): 5 Pathology: other (0.25 cm flat polyp at 90 cm) Complications: None Disposition: same day Indications: Marlen is a 59 year old woman who needs a screening colonoscopy Prep: Miralax/Dulcolax Procedure Start Time: 08:43 Procedure End Time: 08:59 Retraction Time: 10 Findings: 0.5 cm flat polyp at 90 cm, diverticulosis extending from the top of the rectum to 40 cm down the anus. Procedure Description: After the induction of anesthesia, and with the patient in left lateral decubitus position, I began by performing an external anorectal exam.? Perineum and skin were normal, as was the anal verge.? There was no evidence of external hemorrhoids.? Next, I performed a digital rectal exam.? I did not appreciate any abnormal findings.? Next, I advanced a colonoscope into the rectal vault.? I performed retroflexion.? This appeared normal.? Using insufflation, I then advanced the colonoscope beyond the rectal folds and into the sigmoid colon before advancing towards the cecum.? There is sigmoid diverticulosis the quality of the prep was excellent.? The scope was noted to be in the cecum by identification of the ileocecal valve and appendiceal orifice.? I then began withdrawing the colonoscope using repeated irrigation as necessary for full evaluation of the colonic mucosa. Around 90 cm from the anal verge I identified a 0.25 cm polyp. ?It appeared flat in character. ?I was able to remove this with a cold forcep polypectomy. ?I examined the site, and there was minimal bleeding. ?Once this was completed, I continued to withdraw the scope and examine the remainder of the colonic mucosa. Around 40 cm from the anal verge was the beginning of the sigmoid segment that was involved with diverticular changes. This extended down to the top portion of the rectum. Once the scope was withdrawn to the level of the rectum, great care was taken to examine portions of the rectal folds.? Finally, the scope was withdrawn and the patient was brought to the same-day surgery recovery unit as the anesthetic wore off. ?The findings and instructions were shared with the patient prior to discharge. [place] Bowel Prep [facility] Bowel Prep Right Colon: 3 Left Colon: 3 Transverse Colon: 3 Total Score: 9
[2024-09-04 07:36] VITALS: BP 146/98; PULSE 85; RESP 18; TEMP 36.6; O2SAT 100
[2024-09-04] MEDS: Lactated Ringers 1,000 ML 80 ML IV (07:59)
--- NOTE | 2024-09-04 08:49 | ANES.PREOP_ITS ---
General Info Date of Service Date Performed: 09/04/24 Height: 5 ft 5.5 in Weight: 105.5 kg Body Mass Index (BMI): 38.1 Surgical Procedure: Operation Date: 09/04/24 09:20 Proposed Procedure Side Surgeon p Colonoscopy Hernando Al MD Actual Procedure Side Surgeon p Colonoscopy Not Applicable Hernando Al MD Pre-Op Diagnosis Post-Op Diagnosis HISTORY OF COLON POLYPS Meds Allergies and Home Medications Allergies Allergy/AdvReac Type Severity Reaction Status Date / Time No Known Allergies Allergy Verified 09/04/24 07:34 Home Medication ?Medication ?Instructions ?Recorded cholecalciferol (vitamin D3) 25 25 mcg PO DAILY 10/26/22 mcg (1,000 unit) capsule multivitamin 1 tab PO DAILY 10/26/22 Custom Ankle Orthotic #1 ea 11/02/22 levothyroxine 100 mcg capsule 100 mcg PO DAILY 08/10/24 levothyroxine 112 mcg capsule 112 mcg PO DAILY 08/10/24 omega-3 fatty acids 1,000 mg 1,000 mg PO DAILY 08/10/24 capsule tirzepatide (weight loss) 5 mg/0.5 5 mg subcut QWEEK 08/10/24 mL subcutaneous pen injector ([facility]) Current Visit Medications: Current Medications Generic Name Dose Route Start Last Admin Trade Name Freq PRN Reason Stop Dose Admin Ringer's Solution 1,000 mls @ 80 mls/hr 09/04/24 06:00 09/04/24 07:59 IV 09/04/24 23:59 80 mls/hr INFUSION YOAN Administration IV Miscellaneous Supplies 1 each 09/04/24 06:00 Iv Access IV 09/04/24 23:59 DIRECTED YOAN Ondansetron HCl 4 mg 09/03/24 19:15 Ondansetron 4 Mg/2 Ml Vial IVP 10/03/24 19:14 Q4H PRN PRN Nausea / Vomiting Sodium Chloride 0 ml 09/04/24 06:00 Normal Saline Flush 10 Ml Syr IV 09/04/24 23:59 PRN PRN Sodium Chloride 0 ml 09/04/24 06:00 Normal Saline 10 Ml Vial IJ 09/04/24 23:59 DIRECTED PRN Sterile Water 0 ml 09/04/24 06:00 Water,Injection,Sterile 10 Ml Vial IJ 09/04/24 23:59 DIRECTED PRN PFSH Active Problems Active Problems: Problem Status Onset Code Encounter for screening colonoscopy Acute Z12.11 Acquired pes planovalgus of right foot Acute M21.41 Tendinitis Acute M77.9 Sinus tarsi syndrome Acute M25.579 Ankle pain, right Acute M25.571 Hx of breast cancer Acute Z85.3 Right rotator cuff tendonitis Acute M75.81 Biceps tendinitis of right shoulder Acute M75.21 Bursitis of right shoulder Acute M75.51 Colorectal polyps Acute K63.5 Diverticulosis Acute K57.90 Medical History Medical History Conjunctivitis History of left breast cancer (10/29/15) Dx at age 41 Hypothyroidism (10/29/15) Morbid obesity with BMI of 40.0-44.9, adult 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 has left sided sciatica Surgical History Surgical History section Endometrial Biopsy 2012 - Benign - done due to Endometrial cells on pap smear H/O flexible sigmoidoscopy 02/2018- Tubular adenoma and Hyperplastic adenoma History of lumpectomy of left breast Tobacco Smoking/Tobacco Use Status: Never Passive smoking exposure: No Alcohol Alcohol Intake: current Alcohol intake frequency: holidays/special occasions only Substance Use Substance use: Never Substance use type: does not use Vital Signs and Lab Results Vital Signs Most Recent Vital Signs in EMR: Most Recent Vital Signs Temp Pulse Resp BP Pulse Ox 36.6 C 85 18 146/98 H 100 09/04/24 07:36 09/04/24 07:36 09/04/24 07:36 09/04/24 07:36 09/04/24 07:36 Lab Results Blood Type / Crossmatch: No Data to Display Complete Blood Count: No Data to Display Complete Metabolic Panel: No Data to Display Liver Function Panel: No Data to Display Coagulation Panel: No Data to Display Cardiac Panel: No Data to Display Arterial Blood Gas: No Data to Display Venous Blood Gas: No Data to Display Pancreas Panel: No Data to Display Thyroid Panel: No Data to Display Infectious Disease: No Data to Display Blood Cultures: No Data to Display Toxicology Panel: No Data to Display Anesthesia Assessment and Plan Anesthesia History Personal History: PONV Family History: No Family History of Anesthesia Complications Exercise Tolerance Exercise Tolerance: Metabolic Equivalents>4 Pertinent Negatives Pertinent Negatives: No Symptoms of GERD, No Major Cardiovascular Symptoms or Complaints, No Major Pulmonary Symptoms or Complaints and No History of CVA/TIA Cardiac & Pulmonary Exam Cardiac Exam: Normal S1/S2 Heart Sounds Pulmonary Exam: Clear Bilateral Breath Sounds Implantable Cardiac Device Does patient have a Pacemaker or an ICD?: No Airway Exam Known Difficult Airway: No Mallampati Class: 2 Mouth Opening: Normal (> 3cm) Thyromental Distance: Greater than 3 cm Neck Range of Motion: Full ROM Neck Circumference: Normal Teeth Condition: Normal Dentition ASA Classification ASA Score: ASA 3 Emergency Case?: No NPO Status NPO Status: NPO Clears >2 hours, Solids >8 hours Anesthesia Plan Resuscitation Status: Full Code Anesthesia Technique: General Anesthesia Airway Planned: Natural Airway Monitors Used: Standard Monitors Preoperative Comments:: Left arm precautions. History of left sciatic, plan of toradol. PONV plan of zofran
[2024-09-04 08:50] VITALS: BMI 38.1
--- NOTE | 2024-09-04 08:52 | BOWEL_PTH ---
PATIENT: Marlen Renee LOC: [facility] U#:[id number] AGE/SX: 59/F ROOM: RE09/04/[address]: Hernando Al MD : 1965 BED: DIS: 09/04/2024 SPEC #: [id number] RECD: 09/04/24 12:58 STATUS: PRATIBHA REQ #: [id number] DEMARCO: 09/04/24 08:[address]: Hernando Al DEPT: Surgical Specimen RECD BY: Eleanor Torres ENTERED: 09/04/24 12:59 SP TYPE: Bowel OTHR DR: Jayde Dc V Tissues: 1 - BIOPSY BOWEL Procedures: GROSS AND MICRO LEVEL 4 Comments: [id number]
[2024-09-04 09:03] VITALS: BP 91/55; PULSE 80; RESP 16; TEMP 36.3; O2SAT 97
[2024-09-04 09:30] VITALS: BP 118/77; PULSE 77; RESP 16; TEMP 36.2; O2SAT 98
--- NOTE | 2024-09-04 09:31 | W.ANESPOSTOP ---
Postoperative Evaluation Date, Time and Location Date Performed: 09/04/24 Time Performed: 09:31 Patient Location: Day Surgery Unit Vital Signs Most Recent Imported Vital Signs: Most Recent Vital Signs Temp Pulse Resp BP Pulse Ox 36.3 C L 80 16 91/55 L 97 09/04/24 09:03 09/04/24 09:03 09/04/24 09:03 09/04/24 09:03 09/04/24 09:03 Pain Score Most Recent Pain Score: Most Recent Pain Score Pain Level 0 09/04/24 09:03 Assessment Mental Status: Awake (Alert & Oriented to Patient Baseline) Airway and Respiratory Function: Patent airway with normal (patient baseline) respiratory exam Cardiovascular Function: Hemodynamically Stable Hydration Status: Adequately Hydrated Nausea & Vomiting: No Nausea or Vomiting Pain: Pt. Denies Any Pain Peripheral Nerve Block: Patient did not receive a nerve block
== END 2024-09-04 09:44 | disposition home or self-care (01) ==
LOC: SUR 07:27
PROVIDERS: PCP Family Medicine; Visit Provider Surgery
PROC: 0DJD8ZZ Inspection of Lower Intestinal Tract, Via Natural or Artificial Opening Endoscopic (ICD-10-PCS; CPT 45378; principal; 2024-09-04 09:15)
DX: Z12.11 Encounter for screening for malignant neoplasm of colon (principal); K57.30 Diverticulosis of large intestine without perforation or abscess without bleeding; D12.3 Benign neoplasm of transverse colon
CPT/HCPCS: 45380; 88305; J1885; J2405; J2704

== ENCOUNTER 2024-12-14 13:50 | Outpatient (CLI) | payer OTHER, SELFPAY ==
[2024-12-14 14:24] LABS: Hemoglobin A1C 5.4 % (<5.7)
[2024-12-14 15:00] LABS: Anion Gap 9.7 mmol/L (3-11); BUN 12 mg/dL (7-18); CO2 27.3 mmol/L (21.0-32.0); Calcium 9.6 mg/dL (8.5-10.1); Chloride 107 mmol/L (98-107); FREE T4 1.44 ng/dL (0.76-1.46); Glucose 108 mg/dL (74-106); Potassium 4.1 mmol/L (3.5-5.1); Sodium 144 mmol/L (136-145); TSH 0.38 uIU/mL (0.36-3.74)
[2024-12-14 15:19] LABS: Calculated LDL 129 mg/dL (<100); Cholesterol 236 mg/dL (<200); HDL Cholesterol 84 mg/dL (>or=50); Triglyceride 115 mg/dL (<150)
== END 2024-12-14 13:51 | disposition home or self-care (01) ==
LOC: LBO 13:50
PROVIDERS: PCP Family Medicine; Visit Provider Family Medicine
DX: Z00.00 Encounter for general adult medical examination without abnormal findings (principal); E03.9 Hypothyroidism, unspecified; E66.9 Obesity, unspecified
CPT/HCPCS: 36415; 80048; 80061; 83036; 84439; 84443